=== PATIENT | female | born 1995 | race Caucasian/White ===

== ENCOUNTER 2017-06-19 09:51 | Emergency (ER) | payer OTHER ==
[2017-06-19] MEDS ORDERED: Ketorolac Tromethamine 30 MG/ML VIAL ONE (10:42)
[2017-06-19] MEDS ORDERED: Ondansetron HCl/PF 4 MG/2 ML Vial ONE (10:42)
[2017-06-19] MEDS ORDERED: Promethazine HCl 25 MG/ML VIAL ONE (10:42)
[2017-06-19 10:55] LABS: #Basophils 0.1 thou/uL (0.0-0.2); #Eosinphils 0.1 thou/uL (0.0-0.7); #Lymphocytes 1.7 thou/uL (1.20-3.40); #Monocytes 0.6 thou/uL (0.11-0.59); #Neutrophils 7.3 thou/uL (1.40-6.50); %Basophils 0.7 % (0.0-1.0); %Eosinophils 0.8 % (0.0-10.0); %Lymphocytes 17.2 % (21.0-51.0); %Monocytes 6.2 % (0.0-10.0); Hematocrit 40.7 % (36.0-47.0); Mean Platelet Volume 6.9 fL (7.4-10.4); Red Blood Cell (RBC) Count 4.35 mill/uL (4.20-5.40); White Blood Cell (WBC) Count 9.7 thou/uL (4.8-10.8)
[2017-06-19 11:00] LABS: Bilirubin Small (Negative); Blood, Urine Moderate (Negative); Glucose, Urine (Dipstick) Negative (Negative); Ketone, Urine Trace mg/dL (Negative); Nitrite Negative (Negative); Protein, Urine (Dipstick) Negative (Neg-Trace); Urobilinogen 0.2 mg/dL (0.2-1.0)
[2017-06-19 11:11] LABS: Bacteria/HPF 1+ HPF (None Seen); WBC/HPF 0-3 HPF (0-3)
[2017-06-19 11:12] LABS: Hyaline Casts/LPF 0-3 HYALINE CAST LPF (0-3 Hyaline)
--- NOTE | 2017-06-19 11:25 | CT ---
CT ABDOMEN AND PELVIS NONCONTRAST: HISTORY: Right flank pain. FINDINGS: The right renal collecting system and ureters are moderately distended to the level of a 0.3 cm calc ulus at the right ureterovesicular junction. Multiple smaller calcifications are present throughout the calyces of each kidney. The left renal collecting system and ureter are decompressed. Lack of contrast limits evaluation for other abnormalities. IMPRESSION: 1. Partial obstruction at a 3 mm right ureterovesical junction calcification. 2. Additional nonobstructing small bilateral renal calculi. POS: [facility]
[2017-06-19 11:30] LABS: ALT (SGPT) Less than 7 U/L (8-55); AST (SGOT) 11 U/L (5-34); Alkaline Phosphatase 48 U/L (40-150); Anion Gap 11 mmol/L (10-20); BUN (Urea Nitrogen) 12 mg/dL (7.0-18.7); Bilirubin, Total 0.7 mg/dL (0.2-1.2); Calc. Creatinine Clearance 0 mL/min (70-130); Calcium 9.5 mg/dL (7.8-10.44); Carbon Dioxide 25 mmol/L (22-29); Chloride 106 mmol/L (98-107); Estimated GFR-MDRD 75; Globulin 2.5 g/dL (2.4-3.5); Lipase 12 U/L (8-78); Protein, Total 6.8 g/dL (6.0-8.3)
[2017-06-19] MEDS ORDERED: Tamsulosin HCl 0.4 MG CAP PO SCH (12:15)
== END 2017-06-19 12:44 | disposition home or self-care (01) ==
LOC: ERS 09:51
DX: E86.0 Dehydration (principal); N20.0 Calculus of kidney; Z79.899 Other long term (current) drug therapy
CPT/HCPCS: 36415; 74176; 80053; 81003; 81015; 81025; 83690; 85025; 96365; 96375; 96376; J1885; J2270; J2405; J2550

== ENCOUNTER 2017-08-07 02:15 | Emergency (ER) | payer OTHER ==
[2017-08-07 02:51] LABS: Bilirubin Negative (Negative); Blood, Urine Negative (Negative); Glucose, Urine (Dipstick) Negative (Negative); Ketone, Urine 15 mg/dL (Negative); Nitrite Negative (Negative); Protein, Urine (Dipstick) Negative (Neg-Trace); Urobilinogen 0.2 mg/dL (0.2-1.0)
[2017-08-07] MEDS ORDERED: Ondansetron HCl/PF 4 MG/2 ML Vial ONE (02:53)
[2017-08-07 03:01] LABS: #Basophils 0.1 thou/uL (0.0-0.2); #Eosinphils 0.1 thou/uL (0.0-0.7); #Lymphocytes 2.8 thou/uL (1.20-3.40); #Monocytes 0.8 thou/uL (0.11-0.59); #Neutrophils 11.1 thou/uL (1.40-6.50); %Basophils 0.4 % (0.0-1.0); %Eosinophils 0.7 % (0.0-10.0); %Lymphocytes 18.7 % (21.0-51.0); %Monocytes 5.5 % (0.0-10.0); Hematocrit 44.8 % (36.0-47.0); Mean Platelet Volume 7.1 fL (7.4-10.4); Red Blood Cell (RBC) Count 4.85 mill/uL (4.20-5.40); White Blood Cell (WBC) Count 14.8 thou/uL (4.8-10.8)
[2017-08-07 03:26] LABS: Troponin I Less than 0.010 ng/mL (< 0.028)
[2017-08-07 03:27] LABS: ALT (SGPT) 8 U/L (8-55); AST (SGOT) 15 U/L (5-34); Alkaline Phosphatase 64 U/L (40-150); Anion Gap 17 mmol/L (10-20); BUN (Urea Nitrogen) 14 mg/dL (7.0-18.7); Bilirubin, Total 0.7 mg/dL (0.2-1.2); CK (CPK) 23 U/L (29-168); Calc. Creatinine Clearance 0 mL/min (70-130); Calcium 10.6 mg/dL (7.8-10.44); Carbon Dioxide 23 mmol/L (22-29); Chloride 104 mmol/L (98-107); Estimated GFR-MDRD Greater than 90; Protein, Total 7.8 g/dL (6.0-8.3)
[2017-08-07] MEDS ORDERED: Ketorolac Tromethamine 30 MG/ML VIAL ONE (03:46)
[2017-08-07] MEDS ORDERED: Metoclopramide HCl 10 MG/2 ML VIAL ONE (03:46)
--- NOTE | 2017-09-13 14:17 | EKG ---
Test Reason : Blood Pressure : / mmHG Vent. Rate : 080 BPM Atrial Rate : 080 BPM P-R Int : 146 ms QRS Dur : 080 ms QT Int : 398 ms P-R-T Axes : 067 066 061 degrees QTc Int : 459 ms Normal sinus rhythm Possible Left atrial enlargement Borderline ECG Confirmed by NAHOMI HENDRICKS D.O. ([id number]), social media editor NORBERT CALVIN ([id number]) on 09/13/2017 2:17:07 PM Referred By: Confirmed By:NAHOMI HENDRICKS D.O.
--- NOTE | 2017-09-13 14:17 | EKG ---
Test Reason : Blood Pressure : / mmHG Vent. Rate : 118 BPM Atrial Rate : 118 BPM P-R Int : 122 ms QRS Dur : 074 ms QT Int : 314 ms P-R-T Axes : 080 093 -07 degrees QTc Int : 440 ms Sinus tachycardia Biatrial enlargement Rightward axis Nonspecific ST abnormality Abnormal QRS-T angle, consider primary T wave abnormality Abnormal ECG Confirmed by NAHOMI HENDRICKS D.O. ([id number]), writer editor NORBERT CALVIN ([id number]) on 09/13/2017 2:17:04 PM Referred By: Confirmed By:NAHOMI HENDRICKS D.O.
== END 2017-08-07 05:40 | disposition home or self-care (01) ==
LOC: ERS 02:15
DX: R51 Headache (principal); Z79.899 Other long term (current) drug therapy
CPT/HCPCS: 80053; 81003; 82550; 82553; 83690; 84484; 84703; 85025; 93005; 96361; 96365; 96375; J1885; J2405; J2765